=== PATIENT | female | born 1985 | race American Indian/Alaskan Native ===

== ENCOUNTER 2016-10-27 18:09 | Emergency (ER) | payer OTHER ==
[2016-10-27 18:09] VITALS: BMI 26.6
[2016-10-27 18:21] VITALS: BP 155/89; PULSE 74; TEMP 98.5; O2SAT 98
--- NOTE | 2016-10-27 18:34 | ED PDOC ---
Arrival/HPI - General Chief Complaint: Abdominal Pain Time Seen by Provider: 10/27/16 18:18 Historian: Patient - History of Present Illness Narrative History of Present Illness (Text): 10/27/16 18:31 31 y/o female, no pmh, nkda, c/o suprapubic discomfort x 1-2 weeks. Pt. has no nausea or vomiting, no pelvic or flank pain, no hematuria, no dizziness, no night sweat, no numbness or tingling, no vaginal bleeding or discharge, no rash , no other medical or psychological complaints. Past Medical History - Provider Review Nursing Documentation Reviewed: Yes - Infectious Disease Hx of Infectious Diseases: None - Psychiatric Hx Substance Use: No - Anesthesia Hx Anesthesia: No - Suicidal Assessment Feels Threatened In Home Enviroment: No Family/Social History - Physician Review Nursing Documentation Reviewed: Yes Family/Social History: Unknown Family HX Smoking Status: Never Smoked Hx Alcohol Use: No Hx Substance Use: No Allergies/Home Meds Allergies/Adverse Reactions: Allergies No Known Allergies Allergy (Verified 10/27/16 18:20) Review of Systems - Review of Systems Constitutional: absent: Fatigue, Fevers Eyes: absent: Vision Changes ENT: absent: Hearing Changes Respiratory: absent: Cough, Sputum Cardiovascular: absent: Chest Pain Gastrointestinal: Other (suprapubic discomfort). absent: Abdominal Pain, Nausea , Vomiting Genitourinary Female: absent: Dysuria, Frequency, Urine Output Changes, Vaginal Bleeding, Vaginal Discharge Musculoskeletal: absent: Arthralgias Skin: absent: Rash, Pruritis, Skin Lesions Neurological: absent: Headache, Dizziness, Focal Weakness, Gait Changes Physical Exam Vital Signs Reviewed: Yes Vital Signs Temp Pulse Resp BP Pulse Ox 10/27/16 18:46 98.5 F 74 18 155/89 H 98 10/27/16 18:15 98.5 F 74 18 155/89 H 98 Temperature: Afebrile Blood Pressure: Hypertensive Pulse: Regular Respiratory Rate: Normal Appearance: Positive for: Well-Appearing, Non-Toxic, Comfortable Pain Distress: Mild Mental Status: Positive for: Alert and Oriented X 3 - Systems Exam Head: Present: Atraumatic, Normocephalic Pupils: Present: PERRL Ears: Present: NORMAL TM, Normal Canal. No: Erythema Mouth: Present: Moist Mucous Membranes, Normal Tounge, Normal Teeth Nose (External): Present: Atraumatic. No: Abrasion, Contusion Neck: Present: Normal Range of Motion. No: Lymphadenopathy Respiratory/Chest: Present: Clear to Auscultation, Good Air Exchange. No: Respiratory Distress Cardiovascular: Present: Regular Rate and Rhythm, Normal S1, S2 Abdomen: Present: Normal Bowel Sounds. No: Tenderness, Distention, Guarding Genitourinary/Pelvic Exam: Present: Other (Pt. deferred) Back: No: CVA Tenderness Upper Extremity: Present: Normal Inspection, Normal ROM, NORMAL PULSES, Capillary Refill < 2s Lower Extremity: Present: Normal Inspection, NORMAL PULSES, Capillary Refill < 2 s Neurological: Present: GCS=15, Speech Normal, Gait Normal, Memory Normal Skin: Present: Warm, Dry, Normal Color. No: Rashes Lymphatic: No: Cervical Adenopathy Psychiatric: Present: Alert, Oriented x 3, Normal Concentration Medical Decision Making ED Course and Treatment: 10/27/16 18:34 -urine preg -UA 10/27/16 19:02 -UA show no UTI -Transvaginal and pelvic sonogram added - 10/27/16 20:23 -Sonogram show there is ovarian cyst with no torsion. -Pt. feels better. -Discharge home with motrin, stay hydrated, follow up with your own pmd and obgyn within 2 days, return to the ER for any new or worsening signs or symptoms. - Lab Interpretations Lab Results: Lab Results 10/27/16 18:29: Urine Color Yellow, Urine Appearance Clear, Urine pH 6.0, Ur Specific Four [place] >= 1.030, Urine Protein Negative, Urine Glucose (UA) Negative, Urine Ketones Negative, Urine Blood Negative, Urine Nitrate Negative, Urine Bilirubin Negative, Urine Urobilinogen 1.0 H, Ur Leukocyte Esterase Negative I have reviewed the lab results: Yes Interpretation: No clinic. lab abnormalty - RAD Interpretation Radiology Orders: 10/27/16 18:59 PELVIS ULTRASOUND [US] Stat FINDINGS: Uterus/cervix: The endometrial thickness is 0.4 cm. There is no intrauterine . No myometrial mass. Right ovary: There is a right ovarian cyst measuring 2.2 x 1.8 cm. Normal blood flow. Left ovary: There is a left ovarian cyst measuring 1.5 x 1.4 cm. Normal blood flow. Free fluid: No free fluid. IMPRESSION: There are no acute concerning abnormalities. There are bilateral ovarian cysts.If there is desire for further evaluation, a pelvic ultrasound could be performed in 6 weeks to assess for interval change. Thank you for allowing us to participate in the care of your patient. Dictated and Authenticated by: Naheed Cannon MD 10/27/2016 8:20 PM Eastern Time ([place] & [place]) Screening Unit Registered Nurse: Radiologist - PA / TAX ASSESSOR / Resident Statement MD/DO has reviewed & agrees with the documentation as recorded. Disposition/Present on Arrival - Present on Arrival Any Indicators Present on Arrival: No History of DVT/PE: No History of Uncontrolled Diabetes: No Urinary Catheter: No History of Decub. Ulcer: No History Surgical Site Infection Following: None - Disposition Have Diagnosis and Disposition been Completed?: Yes Diagnosis: Ovarian cyst Disposition: HOME/ ROUTINE Disposition Time: 19:28 Patient Plan: Discharge Patient Problems: Current Active Problems Problem Status Onset Ovarian cyst Acute Condition: GOOD Additional Instructions: Discharge home with motrin, stay hydrated, follow up with your own pmd and obgyn within 2 days, return to the ER for any new or worsening signs or symptoms. Prescriptions: Ibuprofen [Motrin Tab] 600 mg PO QID PRN #24 tab PRN Reason: Other Referrals: Iliana Puente MD [Staff Provider] - Follow up with primary Forms: WORK NOTE
[2016-10-27 18:54] LABS: URINE BILIRUBIN NEGATIVE (NEGATIVE); URINE BLOOD NEGATIVE (NEGATIVE); URINE GLUCOSE (UA) NEGATIVE (NEGATIVE); URINE KETONE NEGATIVE (NEGATIVE); URINE LEUKOCYTE ESTERASE NEGATIVE Leu/uL (NEGATIVE); URINE PROTEIN NEGATIVE mg/dL (<30 mg/dL)
[2016-10-27 18:56] LABS: URINE APPEARANCE CLEAR (CLEAR); URINE COLOR YELLOW (YELLOW)
[2016-10-27 20:27] VITALS: RESP 16
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
== END 2016-10-27 20:27 | disposition home or self-care (01) ==
LOC: ED 18:09
DX: N83.202 Unspecified ovarian cyst, left side (principal); N83.201 Unspecified ovarian cyst, right side

== ENCOUNTER 2016-12-13 17:17 | Emergency (ER) | payer OTHER ==
[2016-12-13 17:17] VITALS: BMI 26.6
[2016-12-13 17:30] VITALS: BP 142/90; PULSE 90; RESP 18; TEMP 98.6; O2SAT 97
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
== END 2016-12-13 18:15 | disposition left against medical advice (07) ==
LOC: ED 17:17
DX: R51 Headache (principal); B34.9 Viral infection, unspecified

== ENCOUNTER 2017-07-04 08:32 | Emergency (ER) | payer OTHER ==
[2017-07-04 08:33] VITALS: BMI 26.6
[2017-07-04 09:35] VITALS: TEMP 98.7
[2017-07-04] MEDS ORDERED: Oxycodone/Acetaminophen 5/325 mg Tab PO STA (10:17)
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
[2017-07-04 12:03] VITALS: BP 117/80; PULSE 65; RESP 17; O2SAT 99
== END 2017-07-04 12:03 | disposition home or self-care (01) ==
LOC: ED 08:32
DX: Z04.1 Encounter for examination and observation following transport accident (principal); M54.6 Pain in thoracic spine; V49.49XA Driver injured in collision with other motor vehicles in traffic accident, initial encounter; Y92.410 Unspecified street and highway as the place of occurrence of the external cause

== ENCOUNTER 2017-09-04 05:49 | Emergency (ER) | payer OTHER ==
[2017-09-04] MEDS ORDERED: Alum-Mag Hydrox-Simethicone Susp (30 mL) PO STA (06:04)
[2017-09-04 06:08] VITALS: BP 148/92; PULSE 94; RESP 18; TEMP 98.5; O2SAT 99; BMI 28.3
--- NOTE | 2017-09-04 06:09 | ED PDOC ---
Arrival/HPI - General Chief Complaint: GI Problem Time Seen by Provider: 09/04/17 05:54 Historian: Patient - History of Present Illness Narrative History of Present Illness (Text): you were treated in the ED today for being around sick contacts with nausea/ vomiting/diarrhea with abdomen cramping and secondary gradual onset headache similar to prior but otherwise without any dizziness/difficulty breathing/chest pain//numbness/tingling/loss of limb function/pain with urination. 09/04/17 06:06 09/04/17 06:09 Time/Duration: 24 hours Symptom Onset: Gradual Symptom Course: Unchanged Quality: Aching Severity Level: 1 Activities at Onset: Rest Context: Sitting Past Medical History - Provider Review Nursing Documentation Reviewed: Yes - Travel History Have you recently traveled outside [place] w/in the past 3 mons?: No - Past History Past History: No Previous - Infectious Disease Hx of Infectious Diseases: None - Cardiac Hx Cardiac Disorders: No - Pulmonary Hx Respiratory Disorders: No - Neurological Hx Neurological Disorder: No - HEENT Hx HEENT Disorder: No - Renal Hx Renal Disorder: No - Endocrine/Metabolic Hx Endocrine Disorders: No - Hematological/Oncological Hx Blood Disorders: No - Integumentary Hx Dermatological Disorder: No - Musculoskeletal/Rheumatological Hx Musculoskeletal Disorders: No - Gastrointestinal Hx Gastrointestinal Disorders: No - Genitourinary/Gynecological Hx Genitourinary Disorders: No - Psychiatric Hx Psychophysiologic Disorder: No Hx Substance Use: No - Anesthesia Hx Anesthesia: No - Suicidal Assessment Feels Threatened In Home Enviroment: No Family/Social History - Physician Review Nursing Documentation Reviewed: Yes Family/Social History: No Known Family HX Smoking Status: Never Smoked Hx Alcohol Use: No Hx Substance Use: No Allergies/Home Meds Allergies/Adverse Reactions: Allergies No Known Allergies Allergy (Verified 07/04/17 09:24) Review of Systems - Review of Systems Constitutional: Normal Eyes: Normal ENT: Normal Respiratory: Normal Cardiovascular: Normal Gastrointestinal: Abdominal Pain, Diarrhea, Nausea, Vomiting Genitourinary Female: Normal Musculoskeletal: Normal Skin: Normal Neurological: Headache Endocrine: Normal Hemo/Lymphatic: Normal Psychiatric: Normal Physical Exam Vital Signs Reviewed: Yes Vital Signs Temp Pulse Resp BP Pulse Ox 09/04/17 05:57 98.5 F 94 H 18 148/92 H 99 Temperature: Afebrile Blood Pressure: Hypertensive Pulse: Regular Respiratory Rate: Normal Appearance: Positive for: Well-Appearing, Non-Toxic, Comfortable Pain Distress: None Mental Status: Positive for: Alert and Oriented X 3 - Systems Exam Head: Present: Atraumatic, Normocephalic Pupils: Present: PERRL Extroacular Muscles: Present: EOMI Conjunctiva: Present: Normal Ears: Present: Normal Mouth: Present: Moist Mucous Membranes Pharnyx: Present: Normal Nose (External): Present: Atraumatic Nose (Internal): Present: Normal Inspection Neck: Present: Normal Range of Motion Respiratory/Chest: Present: Clear to Auscultation, Good Air Exchange Cardiovascular: Present: Regular Rate and Rhythm Abdomen: No: Tenderness, Distention, Normal Bowel Sounds, Peritoneal Signs, Rebound, Guarding, McBurney's Point Tender, Rovsing's Sign Present, Hernias, Feeding Tubes, Ostomy Tubes, Mass/Organomegaly, Scars, Other Back: Present: Normal Inspection Upper Extremity: Present: Normal Inspection Lower Extremity: Present: Normal Inspection Neurological: Present: GCS=15, CN II-XII Intact, Speech Normal, Motor Func Grossly Intact Skin: Present: Warm, Normal Color Psychiatric: Present: Alert, Oriented x 3, Normal Insight, Normal Concentration Medical Decision Making ED Course and Treatment: you were treated in the ED today for being around sick contacts with nausea/ vomiting/diarrhea with abdomen cramping and secondary gradual onset headache similar to prior but otherwise without any dizziness/difficulty breathing/chest pain//numbness/tingling/loss of limb function/pain with urination. You refused sexual disease testing or treatment at this time. You were otherwise breathing easily, pink moist lips, smiling and talking easily, good strength/sensation, alert/oriented, walking easily, clear lungs, no specific abdomen tenderness, no fever temp 98.5, stable heart rate 94, stable breathing rate 18, excellent oxygen level 99% room air, elevated blood pressure 148/92 which we recommend repeat in 2-3 days primary care office to determine further treatment, tylenol, zofran, maalox, observation done in the ED with mild improvement, you refused further lab testing/ testing/radiology imaging/observation and cautioned for missed diagnosis/complications/ but you stated just had a your menstruation and feel you have viral intestinal bug, counselled to monitor symptoms_ and thus discharged home. 1. Recommend zofran as directed for nausea/ vomiting. 2. Recommend drink lots of fluids and advance as tolerated. 3. Recommend follow-up primary care 2-3 days to review symptoms. 4. If any worsening pain, fever, chills, nausea, vomiting, difficulty breathing, numbness , loss of limb function, pain with urination or any medical condition then return to the ED. 09/04/17 06:10 09/04/17 06:41 Reassessment Condition: Improved - Medication Orders Current Medication Orders: Discontinued Medications Acetaminophen (Tylenol 325mg Tab) 975 mg PO STAT STA Stop: 09/04/17 06:05 Last Admin: 09/04/17 06:16 Dose: 975 mg Al Hydrox/Mg Hydrox/Simethicone (Maalox Plus 30 Ml) 30 ml PO STAT STA Stop: 09/04/17 06:05 Last Admin: 09/04/17 06:16 Dose: 30 ml Ondansetron HCl (Zofran Odt) 4 mg PO STAT STA Stop: 09/04/17 06:05 Last Admin: 09/04/17 06:16 Dose: 4 mg Disposition/Present on Arrival - Present on Arrival Any Indicators Present on Arrival: No History of DVT/PE: No History of Uncontrolled Diabetes: No Urinary Catheter: No History of Decub. Ulcer: No History Surgical Site Infection Following: None - Disposition Have Diagnosis and Disposition been Completed?: Yes Diagnosis: Gastroenteritis Disposition Time: 06:42 Patient Plan: Discharge Patient Problems: Current Active Problems Problem Status Onset Gastroenteritis Acute Condition: IMPROVED Discharge Instructions (ExitCare): Gastroenteritis (ED) Additional Instructions: ou were treated in the ED today for being around sick contacts with nausea/ vomiting/diarrhea with abdomen cramping and secondary gradual onset headache similar to prior but otherwise without any dizziness/difficulty breathing/chest pain//numbness/tingling/loss of limb function/pain with urination. You refused sexual disease testing or treatment at this time. You were otherwise breathing easily, pink moist lips, smiling and talking easily, good strength/sensation, alert/oriented, walking easily, clear lungs, no specific abdomen tenderness, no fever temp 98.5, stable heart rate 94, stable breathing rate 18, excellent oxygen level 99% room air, elevated blood pressure 148/92 which we recommend repeat in 2-3 days primary care office to determine further treatment, tylenol, zofran, maalox, observation done in the ED with mild improvement, you refused further lab testing/ testing/radiology imaging/observation and cautioned for missed diagnosis/complications/ but you stated just had a your menstruation and feel you have viral intestinal bug, counselled to monitor symptoms_ and thus discharged home. 1. Recommend zofran as directed for nausea/ vomiting. 2. Recommend drink lots of fluids and advance as tolerated. 3. Recommend follow-up primary care 2-3 days to review symptoms. 4. If any worsening pain, fever, chills, nausea, vomiting, difficulty breathing, numbness , loss of limb function, pain with urination or any medical condition then return to the ED. Prescriptions: Ondansetron ODT [Zofran ODT] 4 mg PO Q8 PRN 5 Days #20 odt PRN Reason: Nausea/Vomiting Forms: [facility] (Sudanese), WORK NOTE
== END 2017-09-04 06:52 | disposition home or self-care (01) ==
LOC: ED 05:49
DX: K52.9 Noninfective gastroenteritis and colitis, unspecified (principal)

== ENCOUNTER 2018-01-22 06:23 | Emergency (ER) | payer OTHER ==
[2018-01-22 06:23] VITALS: BMI 28.3
[2018-01-22 06:33] VITALS: RESP 19; TEMP 98.3
[2018-01-22] MEDS ORDERED: Bacitracin/Neomycin/Polymyxin Oint(30GM) TOP STA (07:25)
[2018-01-22] MEDS ORDERED: TDAP Vaccine 0.5 mL Syr IM ONE (07:26)
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
[2018-01-22 07:55] VITALS: BP 125/79; PULSE 78; O2SAT 100
== END 2018-01-22 07:54 | disposition home or self-care (01) ==
LOC: ED 06:23
DX: T22.211A Burn of second degree of right forearm, initial encounter (principal); X10.1XXA Contact with hot food, initial encounter; Y93.G3 Activity, cooking and baking; Y92.233 Cafeteria of hospital as the place of occurrence of the external cause; Y99.0 Civilian activity done for income or pay; Z23 Encounter for immunization

== ENCOUNTER 2018-11-24 15:50 | Emergency (ER) | payer OTHER ==
[2018-11-24 15:50] VITALS: BMI 28.3
[2018-11-24] MEDS ORDERED: Bacitracin Ointment 30 GM TUBE TOP ONE (16:28)
--- NOTE | 2018-11-24 16:29 | ED PDOC ---
Arrival/HPI - General Chief Complaint: Abnormal Skin Integrity Time Seen by Provider: 11/24/18 16:08 Historian: Patient - History of Present Illness Narrative History of Present Illness (Text): 11/24/18 16:30 A 31 year old female who is an employee of [employer], with no significant past medical history, presents to the ED complaining of left upper leg pain for the past 2 days s/p stepping on glass. Patient never seeked medical attention until she was at work today, when she decided to come in to the ED for an evaluation. Patient denies any fevers, chills, headache, dizziness, chest pain, shortness of breath, dyspnea on exertion, cough, abdominal pain, nausea, vomiting, diarrhea, back pain, neck pain, urinary/bowel changes, or any other complaints. Time/Duration: < week (2 days) Symptom Onset: Gradual Symptom Course: Unchanged Activities at Onset: Light Context: Home Past Medical History - Provider Review Nursing Documentation Reviewed: Yes Primary Care Provider: Bakari Cruz - Past History Past History: No Previous - Infectious Disease Hx of Infectious Diseases: None - Cardiac Hx Cardiac Disorders: No - Pulmonary Hx Respiratory Disorders: No - Neurological Hx Neurological Disorder: No - HEENT Hx HEENT Disorder: No - Renal Hx Renal Disorder: No - Endocrine/Metabolic Hx Endocrine Disorders: No - Hematological/Oncological Hx Blood Disorders: No - Integumentary Hx Dermatological Disorder: No - Musculoskeletal/Rheumatological Hx Musculoskeletal Disorders: No - Gastrointestinal Hx Gastrointestinal Disorders: No - Genitourinary/Gynecological Hx Genitourinary Disorders: No - Psychiatric Hx Psychophysiologic Disorder: No Hx Substance Use: No - Anesthesia Hx Anesthesia: No - Suicidal Assessment Feels Threatened In Home Enviroment: No Family/Social History - Physician Review Nursing Documentation Reviewed: Yes Family/Social History: No Known Family HX Smoking Status: Never Smoked Hx Alcohol Use: No Hx Substance Use: No Allergies/Home Meds Allergies/Adverse Reactions: Allergies No Known Allergies Allergy (Verified 01/22/18 06:30) Review of Systems - Physician Review All systems were reviewed & negative as marked: Yes - Review of Systems Constitutional: absent: Fevers Musculoskeletal: Other (RUE pain) Physical Exam Vital Signs Reviewed: Yes Vital Signs Temp Pulse Resp BP Pulse Ox 11/24/18 16:21 98.7 F 78 18 138/91 H 97 Temperature: Afebrile Blood Pressure: Normal Pulse: Regular Respiratory Rate: Normal Appearance: Positive for: Well-Appearing, Non-Toxic, Comfortable Pain Distress: Mild Mental Status: Positive for: Alert and Oriented X 3 - Systems Exam Head: Present: Atraumatic, Normocephalic Pupils: Present: PERRL Extroacular Muscles: Present: EOMI Conjunctiva: Present: Normal Respiratory/Chest: Present: Clear to Auscultation, Good Air Exchange. No: Respiratory Distress, Accessory Muscle Use Cardiovascular: Present: Regular Rate and Rhythm, Normal S1, S2. No: Murmurs Lower Extremity: Present: Other (1.5 cm laceration on plantar aspect of right hallux. Healing, covered w/ skin flap, no active bleeding, dry, tender to palpation.) Neurological: Present: Speech Normal Psychiatric: Present: Alert, Oriented x 3, Normal Insight, Normal Concentration Medical Decision Making ED Course and Treatment: 11/24/18 16:35 Impression: A 33 year old female who presents to the ED for upper right leg pain. Plan: -- Bacitracin -- Keflex -- Motrin -- Left foot X-Ray -- Reassess and disposition Prior Visits: Notes and results from previous visits were reviewed. Patient was last seen in the emergency department on 01/22/18. Progress Notes: Patient is to follow up with podiatry. - Scribe Statement The provider has reviewed the documentation as recorded by the Lee Chaparro Provider Scribe Attestation: All medical record entries made by the Scribe were at my direction and personally dictated by me. I have reviewed the chart and agree that the record accurately reflects my personal performance of the history, physical exam, medical decision making, and the department course for this patient. I have also personally directed, reviewed, and agree with the discharge instructions and disposition. Disposition/Present on Arrival - Present on Arrival Any Indicators Present on Arrival: No History of DVT/PE: No History of Uncontrolled Diabetes: No Urinary Catheter: No History of Decub. Ulcer: No History Surgical Site Infection Following: None - Disposition Have Diagnosis and Disposition been Completed?: Yes Diagnosis: Toe laceration Disposition: HOME/ ROUTINE Disposition Time: 18:30 Patient Plan: Discharge Condition: GOOD Discharge Instructions (ExitCare): Wound Care (DC) Additional Instructions: Keep wound clean, take Keflex as directed and Motrin for pain. Prescriptions: Cephalexin [Keflex] 500 mg PO Q12 #13 capsule Ibuprofen [Motrin] 600 mg PO Q6 #20 tab Ref[place] [facility] [place] [facility] [place] - Follow up with primary [facility] at [facility] [Outside] - Follow up with primary [facility] at [place] [Outside] - Follow up with primary Forms: [facility] (Monegasque), WORK NOTE
[2018-11-24 16:36] VITALS: BP 138/91; PULSE 78; RESP 18; TEMP 98.7; O2SAT 97
--- NOTE | 2018-11-25 09:27 | RAD ---
PROCEDURE: Radiographs of the left great toe. TECHNIQUE:: AP radiograph of the left foot, with oblique and lateral view of the left great toe. 3 view obtained. COMPARISON: None. FINDINGS: BONES: Acute fracture. JOINTS: Normal. SOFT TISSUES: Normal. OTHER FINDINGS: None. IMPRESSION: No demonstrated fracture or dislocation.
== END 2018-11-24 18:46 | disposition home or self-care (01) ==
LOC: ED 15:50
DX: S91.112A Laceration without foreign body of left great toe without damage to nail, initial encounter (principal); W25.XXXA Contact with sharp glass, initial encounter